=== PATIENT | female | born 1970 | race Caucasian/White ===

== ENCOUNTER 2018-05-19 07:39 | Day surgery (SDC) | payer OTHER ==
[~2018-05-19 07:39] MED LIST: Midazolam 1 MG/ML 2 ML SDV ONE; Propofol 200 MG/20 ML SDV ONE; fentaNYL 100 MCG/2 ML SDV ONE
[2018-05-19] MEDS ORDERED: Dextrose 5%-Lactated Ringers 1,000 ML IV SCH (08:30)
[2018-05-19] MEDS ORDERED: Glycopyrrolate 0.2 MG/ML 2 ML SDV IVPUSH ONE (08:30)
--- NOTE | 2018-05-23 12:02 | OR ---
DATE OF PROCEDURE: 05/19/2018 PREOPERATIVE DIAGNOSES: Status post sleeve gastrectomy with ongoing gastroesophageal reflux symptoms and maintenance of morbid obesity status. POSTOPERATIVE DIAGNOSES: Sleeve gastrectomy associated with; 1. Wide-open esophagogastric junction with associated free reflux of gastric contents into esophagus. 2. Fairly large volume sleeve gastrectomy. OPERATIVE PROCEDURE: Esophagogastroduodenoscopy with biopsies of esophagogastric junction for histologic evaluation. ANESTHESIA: IV sedation. INDICATION FOR PROCEDURE: This 47-year-old is presenting status post a sleeve gastrectomy, having been performed in [place], [place]. She is maintaining a morbid obesity status along with significantly associated obesity-related comorbidities and also has quite marked reflux symptoms. The plan is to proceed with upper GI endoscopy for evaluation of the sleeve gastrectomy along with the issue of the gastroesophageal reflux disease. The potential risks including bleeding and perforation were discussed, and the patient wishes to proceed. DETAILS OF PROCEDURE: The patient was taken to the operating room and placed in a left lateral decubitus position. IV sedation was administered, after which the upper GI endoscope was passed orally through the length of the esophagus and into the stomach with retroflexion view of the fundus and thereafter through the pyloric channel and to the junction of second and third portions of the duodenum. Findings included a wide-open esophagogastric junction. There appeared to be a loss of an angulation in that area associated with some degree of hiatal hernia. There was, at this point, mild gross inflammation of esophagogastric junction. 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 The remainder of the stomach was unremarkable other than for the volume of sleeve gastrectomy at this point being evidently quite overly large, likely associated with the patient's relatively poor outcome in terms of weight loss. The pyloric channel and visualized portion of the duodenum were unremarkable. At this point, biopsy was obtained from the esophagogastric junction and sent for histologic evaluation. Minimal bleeding from the biopsy sites was seen, and the procedure was then concluded. The patient will be continued on her preoperative series of Dietary visits and psychiatric evaluation prior to applying for conversion of the sleeve gastrectomy to duodenal switch. At the time of that procedure, she will need to have the hiatal hernia repaired most likely with mesh and reinforcement of the crural repair and then also reduction of the sleeve gastrectomy volume as part of the duodenal switch. The reduction of volume could be accomplished either by means of a re-sleeve of that area or imbrication of the existing sleeve and which of those appeared to be most safe would be determined intraoperatively. Marlo Basilio MD Job #: [id number]
== END 2018-05-19 11:50 | disposition home or self-care (01) ==
LOC: JP.SDS 07:39
PROVIDERS: ATTEND Surgery
DX: K95.89 Other complications of other bariatric procedure (principal); K21.9 Gastro-esophageal reflux disease without esophagitis; E66.09 Other obesity due to excess calories; F17.200 Nicotine dependence, unspecified, uncomplicated; Z98.84 Bariatric surgery status
CPT/HCPCS: 43239; J2250; J2704; J3010; J3490; J7042; 88305

== ENCOUNTER 2018-10-13 07:15 | Inpatient (IN) | payer OTHER ==
[2018-10-13] MEDS ORDERED: Celecoxib 200 MG Cap PO ONE (08:15)
[2018-10-13] MEDS ORDERED: Acetaminophen 500 MG Tab PO ONE (08:15)
[2018-10-13] MEDS ORDERED: Gabapentin 300 MG Cap PO ONE (08:15)
[2018-10-13] MEDS ORDERED: Scopolamine 1.5 MG Transdermal Patch TOP ONE (08:15)
[2018-10-13] MEDS ORDERED: Succinylcholine 200 MG/10 ML MDV ONE (08:17)
[2018-10-13] MEDS ORDERED: Dexamethasone 4 MG/ML SDV ONE (08:17)
[2018-10-13] MEDS ORDERED: Propofol 200 MG/20 ML SDV ONE (08:17)
[2018-10-13] MEDS ORDERED: Rocuronium 50 MG/5 ML Vial ONE (08:17)
[2018-10-13] MEDS ORDERED: Glycopyrrolate 0.2 MG/ML 5 ML MDV ONE (08:17)
[2018-10-13] MEDS ORDERED: Ondansetron 4 MG/2 ML SDV ONE (08:17)
[2018-10-13] MEDS ORDERED: Neostigmine Methylsulfate 1 MG/ML 5 ML Syringe ONE (08:17)
[2018-10-13] MEDS ORDERED: fentaNYL 250 MCG/5 ML SDV ONE (08:20)
[2018-10-13 08:35] LABS: HEMOGLOBIN A1C 5.7 % (4.5-6.2)
[2018-10-13] MEDS ORDERED: Meropenem 500 MG SDV ONE (08:53)
[2018-10-13] MEDS ORDERED: cefOXitin 2 GM in Sodium Chloride 0.9% 50 ML IV ONE (09:15)
[2018-10-13] MEDS ORDERED: Dextrose 5%-Lactated Ringers 1,000 ML IV SCH (09:30)
[2018-10-13] MEDS ORDERED: Ketamine 500 MG/5 ML MDV IV SCH (09:45)
[2018-10-13] MEDS ORDERED: Lidocaine 2% 100 MG/5 ML Syringe IVPUSH SCH (09:45)
[2018-10-13] MEDS ORDERED: Ketamine 50 MG in Sodium Chloride 0.9% 49.5 ML IV SCH (09:45)
[2018-10-13] MEDS ORDERED: Midazolam 1 MG/ML 2 ML SDV ONE (11:08)
[2018-10-13] MEDS ORDERED: Phenylephrine 1% 10 MG/ML SDV ONE ×2 (11:15)
[2018-10-13] MEDS ORDERED: fentaNYL 100 MCG/2 ML SDV ONE (13:26)
[2018-10-13] MEDS ORDERED: hydrOXYzine HCl 100 MG/2 ML SDV IM ONE (14:38)
[2018-10-13] MEDS ORDERED: fentaNYL 100 MCG/2 ML SDV IVPUSH ONE ×2 (14:39→15:14)
[2018-10-13] MEDS ORDERED: Flumazenil 0.1 MG/ML 5 ML MDV ONE (15:30)
[2018-10-13] MEDS ORDERED: Naloxone 0.4 MG/ML SDV ONE (15:30)
[2018-10-13] MEDS ORDERED: HYDROmorphone 1 MG/ML Syringe IV PRN (16:21)
[2018-10-13] MEDS ORDERED: Ondansetron 4 MG/2 ML SDV IVPUSH PRN (16:21)
[2018-10-13] MEDS ORDERED: hydrOXYzine HCl 100 MG/2 ML SDV IM PRN (16:21)
[2018-10-13] MEDS ORDERED: Labetalol 20 MG/4 ML Syringe IVPUSH PRN (16:21)
[2018-10-13] MEDS ORDERED: diphenhydrAMINE 50 MG/ML SDV IVPUSH PRN (16:21)
[2018-10-13] MEDS ORDERED: Albuterol/Ipratropium 3.0-0.5 MG/3 ML Neb Soln INH PRN (16:24)
[2018-10-13] MEDS ORDERED: MVI, Adult with Vitamin K 10 ML, Thiamine 200 MG, Chromium/Copper/Mang/Selen/Zn 1 ML in... IV SCH ×4 (17:00)
[2018-10-13] MEDS ORDERED: Ondansetron 4 MG/2 ML SDV IV PRN (17:02)
[2018-10-13] MEDS: cefOXitin 2 GM in Sodium Chloride 0.9% 50 ML IV SCH ×2 (17:24→23:23)
[2018-10-13] MEDS ORDERED: Pantoprazole 40 MG Vial IVPUSH SCH (18:00)
[2018-10-13] MEDS ORDERED: fentaNYL 25 MCG/HR Transdermal Patch TRDERM SCH (18:00)
[2018-10-13] MEDS: Lidocaine 0.4%/D5W 2 GM/500 ML BAG IV SCH (19:32)
[2018-10-13] MEDS: Heparin Sodium 5,000 Units/ML Vial SUBCUT SCH (19:39)
[2018-10-13] MEDS: Acetaminophen 325 MG Tab PO SCH ×2 (19:41→23:23)
[2018-10-13] MEDS: HYDROmorphone 0.5 MG/0.5 ML Syringe IVPUSH PRN (19:41)
[2018-10-13] MEDS: Gabapentin 300 MG Cap PO SCH (21:30)
[2018-10-13] MEDS: Dextrose 5%-Lactated Ringers 1,000 ML IV SCH (22:46)
[2018-10-14] MEDS ORDERED: Iopamidol 612 MG/ML 100 ML Bottle IV STA (03:04)
[2018-10-14] MEDS: Dextrose 5%-Lactated Ringers 1,000 ML IV SCH ×2 (04:01→09:19)
[2018-10-14] MEDS: cefOXitin 2 GM in Sodium Chloride 0.9% 50 ML IV SCH ×4 (05:03→22:03)
[2018-10-14] MEDS: Acetaminophen 325 MG Tab PO SCH ×4 (05:03→23:39)
[2018-10-14] MEDS: Heparin Sodium 5,000 Units/ML Vial SUBCUT SCH ×2 (05:03→17:45)
--- NOTE | 2018-10-14 05:38 | CRLCR ---
Indication: Abe-en-Y conversion to duodenal switch. Anastomotic leak Technique: Four views of the abdomen was obtained following the administration of oral contrast Comparison: None available Findings: Postsurgical changes with an abdominal drain and skin alireza. Contrast opacifies the distal esophagus and stomach, extending to right abdominal small bowel segments. A small focus of contrast adjacent to the gastric body, possibly intraluminal, with an apparent adjacent suture. A small focus of contrast density seen adjacent to the proximal gastrojejunostomy segment on the 1st image, mildly less conspicuous on the other images, which could be related to a small decompressed portion of the bowel segment. Consider followup upper GI evaluation. Otherwise, no gross extravasation seen. Contrast progresses to lower abdominal and pelvic small bowel segments. Dictated by Juan Foster MD @ 10/14/2018 5:36:42 AM Dictated by: Juan Foster MD @ 10/14/2018 05:36:47 (Electronically Signed)
[2018-10-14] MEDS ORDERED: Cyclobenzaprine 10 MG Tab PO PRN (08:29)
[2018-10-14] MEDS: Celecoxib 200 MG Cap PO SCH (08:40)
[2018-10-14] MEDS: Gabapentin 300 MG Cap PO SCH ×3 (08:40→21:10)
[2018-10-14] MEDS: buPROPion 150 MG Tab.ER PO SCH (08:43)
[2018-10-14] MEDS: SCOPOLAMINE PATCH CHECK TOP SCH (08:53)
[2018-10-14] MEDS ORDERED: FENTANYL PATCH CHECK TOP SCH (09:00)
[2018-10-14] MEDS ORDERED: Venlafaxine 75 MG Tab PO SCH (09:00)
[2018-10-14] MEDS ORDERED: Pantoprazole 40 MG Vial IV SCH (09:00)
[2018-10-14] MEDS: HYDROmorphone 0.5 MG/0.5 ML Syringe IVPUSH PRN (09:11)
[2018-10-14] MEDS: Magnesium Sulfate/Water 2 GM in Premix Bag 1 BAG IV SCH ×3 (10:05→22:05)
[2018-10-14] MEDS: Metoclopramide 10 MG/2 ML SDV IVPUSH PRN ×2 (11:30→16:32)
[2018-10-14] MEDS: Lidocaine 0.4%/D5W 2 GM/500 ML BAG IV SCH (12:49)
[2018-10-14] MEDS ORDERED: Lidocaine 5% 700 MG Patch TRDERM SCH (13:00)
[2018-10-14] MEDS ORDERED: MVI, Adult with Vitamin K 10 ML, Thiamine 200 MG, Chromium/Copper/Mang/Selen/Zn 1 ML in... IV SCH ×4 (16:00)
[2018-10-14] MEDS: Venlafaxine 75 MG Tab PO SCH (21:09)
[2018-10-14] MEDS: Pantoprazole 40 MG Delayed-Release Granules 1 Packet PO SCH (21:10)
[2018-10-15] MEDS: Dextrose 5%-Lactated Ringers 1,000 ML IV SCH (03:00)
[2018-10-15] MEDS: Magnesium Sulfate/Water 2 GM in Premix Bag 1 BAG IV SCH ×2 (03:02→11:11)
[2018-10-15] MEDS: cefOXitin 2 GM in Sodium Chloride 0.9% 50 ML IV SCH ×2 (05:06→11:18)
[2018-10-15] MEDS: Acetaminophen 325 MG Tab PO SCH ×3 (05:06→19:29)
[2018-10-15] MEDS: Heparin Sodium 5,000 Units/ML Vial SUBCUT SCH ×2 (05:07→17:28)
[2018-10-15] MEDS: Celecoxib 200 MG Cap PO SCH (08:23)
[2018-10-15] MEDS: Venlafaxine 75 MG Tab PO SCH ×2 (08:42→20:55)
[2018-10-15] MEDS: Gabapentin 300 MG Cap PO SCH ×3 (08:43→20:55)
[2018-10-15] MEDS: buPROPion 150 MG Tab.ER PO SCH (08:43)
[2018-10-15] MEDS ORDERED: Cyanocobalamin (Vitamin B12) 1,000 MCG/ML SDV IM ONE (09:00)
[2018-10-15] MEDS: SCOPOLAMINE PATCH CHECK TOP SCH (09:19)
[2018-10-15] MEDS ORDERED: Ondansetron 4 MG Tab.DIS PO PRN (12:11)
[2018-10-15] MEDS: Pantoprazole 40 MG Delayed-Release Granules 1 Packet PO SCH (20:55)
[2018-10-16] MEDS: Acetaminophen 325 MG Tab PO SCH ×3 (01:10→12:48)
[2018-10-16] MEDS: Heparin Sodium 5,000 Units/ML Vial SUBCUT SCH (05:27)
[2018-10-16] MEDS ORDERED: Magnesium Hydroxide 400 MG/5 ML Susp 30 ML Cup PO ONE (09:00)
[2018-10-16] MEDS: Celecoxib 200 MG Cap PO SCH (09:10)
[2018-10-16] MEDS: buPROPion 150 MG Tab.ER PO SCH (09:10)
[2018-10-16] MEDS: Gabapentin 300 MG Cap PO SCH (09:10)
[2018-10-16] MEDS: Venlafaxine 75 MG Tab PO SCH (09:10)
--- NOTE | 2018-10-16 11:19 | PN ---
DATE OF SERVICE: 10/13/2018 SUBJECTIVE: Jessica is postoperative day #3. She has not had a bowel movement and is having an increased amount of abdominal pain and bloating. Vital signs have been stable. Tolerating a step 2 gastric bypass diet with no cereal, oral intake was 1880. Urine output was 2410. YOSHI drain put out 105 mils of a light pink drainage. She has been up ambulating and has no other concerns or questions. OBJECTIVE: GENERAL: Jessica Chan is a pleasant 48-year-old female. VITAL SIGNS: Her height is 5 feet 8 inches. Weight is 299 pounds and 3 ounces. BMI is 45.5. TPR is 96.8, 70, 14, blood pressure is 115/61. HEENT: Negative. NECK: Supple. HEART: Regular rate and rhythm. LUNGS: Clear. ABDOMEN: Dressings dry and intact. Abdominal binder is on. EXTREMITIES: Without peripheral edema. ASSESSMENT: 1. Diagnostic laparoscopy with repair of paraesophageal diaphragmatic hernia with mesh. 2. Followed by conversion to open laparotomy with lysis of extensive adhesions. a. Formation of duodenal switch. b. Small bowel resection. c. Repair of incarcerated incisional hernia. d. Mj-Cut needle liver biopsy. 3. Morbid obesity, hepatomegaly, paraesophageal diaphragmatic hernia, segment of small bowel deserosalized during formation of the Abe limb and incarcerated incisional hernia. Date of surgery 10/13/2018. Surgeon, Marlo Basilio MD. 4. Respiratory distress requiring use of a BiPAP following surgery which required intensive care unit. PLAN: 1. DC YOSHI drain. 2. Milk of magnesia 30 mL now, followed in 1 hour by Dulcolax 20 mg tablet orally. 3. Repeat Dulcolax 10 mg tab p.o. if no BM at 1800. 4. Dietary consult. 5. Order will be written through [facility] [place] system to order a toilet riser. 6. Good pulmonary toile. We will evaluate p.r.n. or in a.m. Poornima Zavala PA-C /[id number]
[2018-10-16] MEDS ORDERED: Bisacodyl 5 MG Tab PO ONE (18:00)
--- NOTE | 2018-10-17 07:57 | DISCH ---
ADMISSION DIAGNOSES: 1. Morbid obesity, BMI 43.42. 2. Status post sleeve gastrectomy. 3. Weight regain after bariatric procedure. 4. Neuropathy. 5. Gastroesophageal reflux disease. 6. Severe obstructive sleep apnea. 7. Blepharoconjunctivitis of both eyes. 8. General anxiety disorder. 9. Raynaud's phenomenon without gangrene. 10.Moderate episode of recurrent major depression disorder. DISCHARGE DIAGNOSES: 1. Diagnostic laparoscopy with repair of paraesophageal diaphragmatic hernia with mesh. 2. Conversion to open laparotomy with lysis of extensive adhesions: a. Formation of duodenal switch. b. Small bowel resection. c. Repair of incarcerated incisional hernia. d. Mj-Cut needle liver biopsy, for morbid obesity, hepatomegaly, paraesophageal diaphragmatic hernia, removal of segment of small bowel deserosalized during formation of the Abe limb, and incarcerated incisional hernia. DATE OF SURGERY: 10/13/2018. SURGEON: Marlo Basilio MD. Acute respiratory distress requiring use of BiPAP following surgery, requiring intensive care unit for 2 days. HISTORY: Jessica Chan is a 48-year-old female, who had a sleeve gastrectomy with weight regain. She presented to the hospital requesting a sleeve gastrectomy converted to a duodenal switch. After preoperative evaluation and discussion of possible risks and possible complications, she wished to proceed with surgical procedure. HOSPITAL COURSE: Jessica had her surgery on 10/13/2018. Immediately postop in recovery room, she developed respiratory distress requiring BiPAP and was in intensive care unit for 2 days. She gradually responded, did well breathing on her own, started on a step-2 gastric bypass diet. She was moved from intensive care unit on 10/15/2018, [facility]. Jessica's vital signs remained stable. She tolerated a step-2 gastric bypass diet without cereal. Pain was well managed. Activity was good, and she was able to be discharged to home on 10/16/2018. Last BM was 10/16/2018. PHYSICAL EXAMINATION: GENERAL: Jessica Chan is a 48-year-old female. VITAL SIGNS: Height is 5 feet 8 inches, weight is 299 pounds 3 ounces, BMI 45.5. TPR 96.8, 70, 14, blood pressure 115/61. HEENT: Negative. NECK: Supple. HEART: Regular rate and rhythm. LUNGS: Clear. ABDOMEN: Abdominal binder is on incision. EXTREMITIES: Negative extremities. YOSHI drain was removed. Extremities without peripheral edema. DISPOSITION: Discharged to home. CONDITION: Stable and improving. FOLLOWUP: Followup appointment with Poornima Zavala PA-C, at [facility] on 10/25/2018 at 10 a.m. HOME MEDICATIONS: Tylenol 650 mg every 6 hours, Celebrex 200 mg oral daily. She is to resume albuterol DuoNebs 3 mL as directed p.r.n., bupropion XL 150 oral daily, Zofran ODT 4 mg q.4 hours p.r.n. nausea, #30, venlafaxine 37.5 mg oral twice daily, cyclobenzaprine 10 mg oral 3 times a day p.r.n. muscle spasms, lidocaine 5% one applicator topical twice daily, nystatin and triamcinolone cream 1 applicator twice daily p.r.n. itching, Sudafed 12 hour 120 oral twice daily p.r.n., Ambien 5 mg oral at bedtime. Discontinue taking all vitamins and supplements after first postop appointment. DIET: After discharge, step-2 gastric bypass diet with no cereal for 1 month, 11/13/2018. ACTIVITY: After discharge, no lifting greater than 10 pounds for 6 weeks. Other activity: Walk at least 6 times daily. Distance and time as tolerated. Driving: Do not drive for 1 week and while on pain medication. Shower/bathing: May shower. DISCHARGE INSTRUCTIONS: Notify provider if any fever, increased pain, swelling, redness, nausea, or vomiting. Wound incision care: Keep site clean and dry. Wear abdominal binder for 6 weeks. Special instruction: Use incentive spirometer 10 times every hour while awake for 1 week and then as directed.
--- NOTE | 2018-10-17 13:16 | PN ---
DATE OF SERVICE: 10/15/2018 The patient has been afebrile with stable vital signs. She CPAP overnight and appears alert and at this point, her oral intake is fairly good. We will advance diet a little bit more in terms of higher protein content today. Otherwise, she will be transferred to the second floor and Benavidez catheter will come out, and then she will be ready for discharge home tomorrow. Marlo Basilio MD /[id number]
--- NOTE | 2018-10-17 13:16 | PN ---
DATE OF SERVICE: 10/14/2018 In the recovery room, the patient was noted to have poor respiratory effort and was therefore transferred to ICU. Overnight, she has been on BiPAP via mask, and with this, has quite good blood gases. This morning, pH is 7.39, PCO2 of 43 compared to 145, and O2 saturations of 98.8 on 50% FiO2. Otherwise, urine output has been good. She is much more alert today. Her upper GI x-ray looked very good with good emptying out of the stomach. The plan today will be to switch over to her own CPAP per Nursing and Respiratory Therapy discretion and restart her pertinent oral medications and a step-2 diet. I think the Benavidez catheter we will leave in for today and we will probably get that out tomorrow. Otherwise, work with pulmonary toilet. For her magnesium, I will supplement that over the next 48 hours. Marlo Basilio MD /[id number]
--- NOTE | 2018-10-17 14:06 | OR ---
DATE OF PROCEDURE: 10/13/2018 SURGEON: Marlo Basilio MD PREOPERATIVE DIAGNOSIS: Morbid obesity. POSTOPERATIVE DIAGNOSES: 1. Morbid obesity. 2. Marked hepatomegaly. 3. Paraesophageal diaphragmatic hernia. 4. Segment of small bowel was devascularized during formation of Abe limb. 5. Incarcerated incisional hernia. OPERATIVE PROCEDURES: 1. Diagnostic laparoscopy with repair of paraesophageal diaphragmatic hernia with mesh (88419) followed by: 2. Conversion to open laparotomy with lysis of extensive adhesions and: a. Formation of duodenal switch (46925). b. Small bowel resection (42021). c. Repair of incarcerated incisional hernia (46956). d. Mj-Cut needle liver biopsy (17709). ANESTHESIA: General. NET LEAD DEVELOPER: Poornima Zavala PA-C. INDICATION FOR PROCEDURE: This is a 48-year-old status post a sleeve gastrectomy. Initially, she had fairly good result, but now has remained quite obese with present BMI of 43. After preoperative evaluation and discussion, she wished to proceed with conversion to a duodenal switch. The patient also has quite a bit in the way of reflux and known diaphragmatic hernia that would be addressed concurrently. She has fairly extensive previous abdominal surgeries and potential risk of needing to go to an open procedure were gone over. Otherwise, potential risks including bleeding, infection, leaks from various GI tract closures, problems with bowel obstruction over time, as well as the possibility of cardiopulmonary, septic, or hemorrhagic complications leading to were discussed, and the patient wishes to proceed. DETAILS OF PROCEDURE: The patient was taken to the operating room and placed in a supine position. After general endotracheal anesthesia was induced, she was converted to a lithotomy position. A Benavidez catheter was inserted, and the abdomen was prepped and draped. At 15 cm inferior and 5 cm left of the xiphoid process, a transverse incision was made and the peritoneal cavity entered under direct vision with an Optiview trocar. The peritoneal cavity was inflated to 15 mmHg pressure with CO2, and bilateral subcostal transversus abdominis plane blocks were then placed. Initially, some adhesions in the upper abdomen as well as medial aspect of the right subcostal incision were taken down with Harmonic Scalpel. These all involved omentum. This then allowed placement of 5 additional trocars across the upper and midabdomen. Initially, we addressed the diaphragmatic hernia. The area along the distal esophagus and esophagogastric junction was visualized after takedown of some adhesions with Harmonic scalpel. Following that, dissection around the esophagogastric junction and distal esophagus began. The patient was noted to have significant paraesophageal component to the diaphragmatic hernia with prolapse of some omentum and perigastric fat, along the edge of the fundus to the left and anterior to the diaphragmatic hernia. After subsequent dissection, the patient had also a prolapse of stomach posterior to the course of the esophagus. The area of the esophagogastric junction was eventually freed up circumferentially, and a crural repair was then accomplished using 0 Ethibond sutures reinforced with PTFE pledgets. The posterior repair was then augmented with some Phasix ST mesh, which was placed over the crural repair and along the side of the esophagus on each side. The patient had enough stomach present that partial wrap was then accomplished by swinging a portion of the remaining gastric fundus posterior to the esophagus and suturing there with some 0 Ethibond sutures reinforced with PTFE pledgets. At this point, the hiatal hernia appeared to be satisfactorily repaired. We then began additional dissection. Eventually, it became evident that the area around the duodenum was densely encased in adhesions, and this would not allow a safe dissection of that area via a laparoscopic approach. Given this, the trocars were removed and the peritoneal cavity deflated. Upper midline incision was made and carried down through the skin and subcutaneous tissue. At the lower end of the upper midline incision, the patient had a previous midline incision used to complete a laparoscopic-assisted hysterectomy. This contained some incarcerated omentum within the hernia, involved in that incision. This was then reduced. At that point, the remaining adhesions were gradually taken down, and the area of the duodenum could be well visualized in terms of the first beginning and second portions of the duodenum. At that point, before converting to the duodenal switch, the small bowel was identified at a point 300 cm proximal to the ileocecal valve. This came up to the first portion of the duodenum nicely without tension, after division of some of the omentum away from the transverse colon just inferior to that and reflecting that toward the left. At this point, the small bowel was oriented such that the efferent limb was heading in the distal direction. The duodenum was then divided roughly 4 cm distal to the pylorus with 2 firings of the MAYNOR duarte load. The small bowel at the 300 cm proximal to the ileocecal valve tierney, was then brought up and sutured on the superior aspect of the divided duodenum proximally with a 3-0 Vicryl stitch and then on the inferior aspect as well. One additional suture between the area of the pyloric sphincter and the small bowel was also placed, these were all with 3-0 Vicryl stitch, the latter to help maintain some countertraction during placement of the stapler. Once this was in place, duodenotomy and an enterotomy were made [id number] on the inferior aspect of the duodenum and MAYNOR duarte load 30 mm in length was then placed with one limb on each part of the involved bowel and initial firing created the initial anastomotic staple line. On the superior, inferior, and midportions of the common opening, 3-0 Vicryl stay sutures were then placed. This then allowed that area to be pulled up, and this was then closed off with a MAYNOR purple load. This anastomosis was then reinforced with 3-0 Vicryl seromuscular stitch and then subsequently fibrin sealant. The sleeve gastrectomy in the area of the antrum appeared to be somewhat overly generous, and beginning roughly 2 cm proximal to the pylorus, a portion of the antrum was then resected up to the point just below the incisura angularis with MAYNOR black loads. The Mj-Cut needle biopsies were then obtained from left lobe of liver at this point to assess the patient's hepatic status. Minimal bleeding from the biopsy site was controlled with electrocautery. At this point, the small bowel was divided just proximal to the anastomosis to create the Abe limb component of the duodenal switch. During the course of this dissection, roughly at 10 cm, bowel became devascularized, and this was resected and sent as a separate specimen, this being divided with the MAYNOR stapler and the underlying mesentery with Harmonic scalpel. This proximally-divided small bowel was then brought down 150 cm along the small bowel distal to the duodenoileostomy, and a [id number] anastomosis was accomplished with internal firing of the Endo-MAYNOR 60 mm stapler, common opening was the closed transversely with MAYNOR stapler as well, and the angles of anastomosis reinforced with 3-0 Vicryl stitch. The mesenteric defect was then closed with a 2-0 silk stitch. At this point, the abdomen was irrigated with an antibiotic-containing saline solution. Fibrin sealant was applied to the duodenoileostomy at the new staple line along the antrum and the enteroenterostomy. At that point, the midline fascia was then approximated with #2 Vicryl stitch at the lower end of this closure. This included repair of the incarcerated incisional hernia. Two August-Dee drains were then placed and one taken along the duodenal stump. Some fibrin sealant was also applied over the duodenal stump and omentum applied to that area as well and second drain was placed just inferior to the duodenoileostomy. After midline fascia was approximated, the subcutaneous tissue was approximated with 2 layers of 3-0 Vicryl stitch deep and alireza for the skin. Dressing was applied. The patient was taken to the recovery room in a satisfactory condition. There were no evident complications. Physician records assistant, Poornima Zavala, played an essential role in assisting in this case, helping to position the patient, retract structures as needed, as well as suturing and cutting sutures when indicated. Her presence improved patient safety and decreased the operative time. Marlo Basilio MD /[id number]
== END 2018-10-16 14:30 | disposition home or self-care (01) | DRG 620 ==
LOC: EDSTATUS 07:15 → JP.SDS 07:34 → JP.SDSSCHI 07:34 → JP.ICU 16:13 → JP.MS 10-15 09:45
PROVIDERS: ADMIT Surgery; ATTEND Surgery
PROC: 5A09457 Assistance with Respiratory Ventilation, 24-96 Consecutive Hours, Continuous Positive Airway Pressure (ICD-10-PCS; principal; 2018-10-13)
PROC: 0D190ZB Bypass Duodenum to Ileum, Open Approach (ICD-10-PCS; 2018-10-13)
PROC: 0DJD4ZZ Inspection of Lower Intestinal Tract, Percutaneous Endoscopic Approach (ICD-10-PCS; 2018-10-13)
PROC: 0DNU4ZZ Release Omentum, Percutaneous Endoscopic Approach (ICD-10-PCS; 2018-10-13)
PROC: 0BUT4JZ Supplement Diaphragm with Synthetic Substitute, Percutaneous Endoscopic Approach (ICD-10-PCS; 2018-10-13)
PROC: 0DB60ZZ Excision of Stomach, Open Approach (ICD-10-PCS; 2018-10-13)
PROC: 0FB20ZX Excision of Left Lobe Liver, Open Approach, Diagnostic (ICD-10-PCS; 2018-10-13)
PROC: 0DB80ZZ Excision of Small Intestine, Open Approach (ICD-10-PCS; 2018-10-13)
PROC: 0WQF0ZZ Repair Abdominal Wall, Open Approach (ICD-10-PCS; 2018-10-13)
PROC: 0DN90ZZ Release Duodenum, Open Approach (ICD-10-PCS; 2018-10-13)
DX: E66.01 Morbid (severe) obesity due to excess calories (principal); K43.0 Incisional hernia with obstruction, without gangrene; K55.9 Vascular disorder of intestine, unspecified; F33.8 Other recurrent depressive disorders; K44.9 Diaphragmatic hernia without obstruction or gangrene; Z53.31 Laparoscopic surgical procedure converted to open procedure; K31.89 Other diseases of stomach and duodenum; K66.0 Peritoneal adhesions (postprocedural) (postinfection); R16.0 Hepatomegaly, not elsewhere classified; Z68.41 Body mass index [BMI] 40.0-44.9, adult; Z98.84 Bariatric surgery status; G62.9 Polyneuropathy, unspecified; R06.03 Acute respiratory distress; K21.9 Gastro-esophageal reflux disease without esophagitis; G47.33 Obstructive sleep apnea (adult) (pediatric); F41.1 Generalized anxiety disorder; I73.00 Raynaud's syndrome without gangrene; H10.503 Unspecified blepharoconjunctivitis, bilateral
CPT/HCPCS: 36415; 36600; 74240; 80053; 82803; 82962; 83036; 83735; 83880; 84100; 85025; 86850; 86900; 86901; 94660; 94762; A9270-GY; C1713; C1781; C9113; J0171; J0330; J0694; J1100; J1170; J1644; J2001; J2185; J2250; J2310; J2370; J2405; J2704; J2710; J2765; J2795; J3010; J3410; J3411; J3420; J3475; J3490; J7030; J7042; J7050; Q9967